=== PATIENT | female | born 1995 | race Two or more races ===

== ENCOUNTER 2024-11-18 14:42 | Inpatient (IN) | payer MEDICAID, SELFPAY ==
[2024-11-18] VITALS (26 sets, daily range): BP systolic 97–201; BP diastolic 56–79; PULSE 56–80; RESP 16–98; TEMP 37.1; O2SAT 97–99; BMI 27.5
--- NOTE | 2024-11-18 15:27 | XR_ITS ---
Examination: Complete OB ultrasound greater than 14 weeks Date and time of exam: November 18, 2024, 1615 hours INDICATIONS: Post dates, labor evaluation today. Findings: Viable intrauterine single fetus with single amniotic sac presentation cephalic spine maternal right. Cardiac motion 136 BPM. Placenta posterior grade 3. Umbilical cord insertion seen. Amniotic fluid index 11.8 cm. Cervix 3.9 cm. Ovaries obscured by the fetus.. Composite estimated gestational age based on BPD, head circumference, abdominal circumference, femur length is 40 weeks 5 days, estimated weight 4352 g. Survey of intracranial anatomy, spinal anatomy, abdominal anatomy, four-chamber heart performed with no abnormalities identified. Impression: Viable intrauterine gestation cephalic presentation. Estimated gestational age 40 weeks 5 days Estimated weight 4352 g..
[2024-11-18 16:29] LABS: Amphetamine/Methamp Scrn,U Negative (Negative); Barbiturate Screen,Urine Negative (Negative); Benzodiazepines Screen,Urine Negative (Negative); Benzoylecgonine Screen, Ur Negative (Negative); Fentanyl Screen,Urine Negative (Negative); Opiate Screen,Urine Negative (Negative); THC Screen,Urine Negative (Negative)
--- NOTE | 2024-11-18 16:43 | PD.LDHP ---
Documentation for date of: 11/18/24 OB Labor/Induct. HPI History of Present Illness Chief complaint: Patient sent over for induction of labor at 41 weeks : 3 Para: 2 Living children: 2 History of Abortions: Spontaneous and Elective: 0 History of Vaginal deliveries: 2 History of sections: No History of : No Date of last menstrual period: 02/06/24 TEJINDER: 11/12/24 Gestational Age (weeks): 40 Gestational Age (days): 6 Gestational age based on last menstrual period: 40 History of present illness: The patient is a 29-year-old -0-0-2 at 40 weeks and 6 days sent over from Dr. Jay's office for an NST and to schedule a possible induction of labor secondary to postdates. Patient had late care at [address] Jay and no set plan for delivery. We do some have records available from Dr. Jay's office. On presentation patient is 4 cm dilated 70% effaced -2 station. Patient was admitted for an induction of labor secondary to postdates with a favorable cervix. Patient started her care in [place] and is dated by 13-week ultrasound that she has on her phone. All other available records from [address] Jay's office are on the chart. She had a history of 2 uncomplicated vaginal deliveries in [place]. She does not get epidurals. She denied any complications. History of Present Dating criteria: LMP confirmed by 1st trimester US (Ultrasound on patient's phone from [place]) Adequate Care: No (US at 13 weeks in [place] ,started care at [address] Jay) Ultrasounds: normal mid trimester US Obstetrical complications: none Medical complications: none Labs Maternal Blood Type: O Pos Labs: Positive: Rubella Titre, Negative: HIV and Group Beta Strep and Unknown: RPR, Hepatitis B, Chlamydia, Gonorrhea, Herpes Type 1, Herpes Type 2 and Covid-19 Past Medical History Surgical History SURGICAL: Negative Section Meds Home Medications and Allergies Home Medications ?Medication ?Instructions ?Recorded ?Confirmed ?Type folic acid 11/18/24 History Allergies Allergy/AdvReac Type Severity Reaction Status Date / Time No Known Drug Allergies Allergy Verified 11/18/24 16:08 OB Exam Physical Exam Vital signs: Temp Pulse Resp BP Pulse Ox 98.7 F 80 16 103/68 98 11/18/24 14:43 11/18/24 14:43 11/18/24 14:43 11/18/24 14:43 11/18/24 15:46 Constitutional Constitutional: no acute distress Routine Cardiovascular Exam Cardiovascular: Present RRR Routine Abdominal Exam Abdominal: Present soft Comments: EFW 7 pounds Detailed Labor and Delivery Exam Dilation (cm): 4 Effacement (%): 70 Cervix position: posterior station: -2 Consistency: medium Presentation: Vertex Membranes: intact Baseline heart rate: 150 monitor accelerations: 15x15 monitor decelerations: None oysterman variability: Moderate (11-25) Contraction frequency (min): Irregular Tachysystole: No OB Results Labs 11/18/24 15:48 OB Assessment & Plan Assessment and Plan (1) Post-dates : Status: Acute Assessment and plan: Draw all missing labs. Check ultrasound for weight and position. Admit patient and induce labor for postdates. Additional Plan Induction method: per pitocin protocol Plan: induction (1) Post-dates Qualifiers: Post-term type: 40-42 weeks gestation Qualified Code(s): O48.0 - Post-term
[2024-11-18 16:45] LABS: Basophils # (Auto) 0.0 Thou/mm3 (0.0-0.2); Basophils % (Auto) 0 % (0-2.5); Eosinophils # (Auto) 0.0 Thou/mm3 (0.0-0.5); Eosinophils % (Auto) 0 % (0-10); Hematocrit 31.0 % (36.0-46.0); Hemoglobin 10.1 g/dL (12.0-16.0); Immature Granulocytes Auto 0.02 Thou/mm3 (0.00-0.00); Lymphocytes # (Auto) 1.6 Thou/mm3 (1.0-4.8); Lymphocytes % (Auto) 25 % (10-50); Mean Corpuscular HGB Conc 32.6 g/dl (31.0-37.0); Mean Corpuscular Hemoglobin 26.9 pg (25.0-35.0); Mean Corpuscular Volume 83 fL (80-100); Monocytes # (Auto) 0.4 Thou/mm3 (0.0-0.8); Monocytes % (Auto) 6 % (0-12); Neutrophils # (Auto) 4.3 Thou/mm3 (1.8-7.7); Neutrophils % (Auto) 68 % (37-80); Nucleated Red Blood Cell # 0.00 Thou/mm3 (0.00-0.00); Nucleated Red Blood Cell % 0 /100 WBC (0); Platelet Count 138 Thou/mm3 (140-440); RDW Standard Deviation 41.1 fL (36.4-46.3); Red Blood Count 3.75 Miln/mm3 (4.00-5.20); White Blood Count 6.3 Thou/mm3 (3.6-11.0)
[2024-11-18] MEDS: RINGERS LACTATED 1000 ML 1,000 ML 100 ML IV ×2 (16:53→19:44)
[2024-11-18 17:23] LABS: Syphilis Nonreactive (Nonreactive)
--- NOTE | 2024-11-18 18:42 | PD.LDPN ---
Documentation for date of: 11/18/24 OB Labor Progress Note Pain Control Pain control: tolerating well Comments: Patient comfortable with rare contractions. She is okay with an amniotomy and Pitocin augmentation. She is Angolan-speaking only and her entire interview is with Cassie hammond labor and delivery nurse at bedside. Pelvic Exam Dilation (cm): 4 Effacement (%): 70 station: -2 Amniotic membrane status: Ruptured Comments: AROM to clear fluid at 1830 IUPC placed Contractions Monitor mode: External Contraction frequency: Irregular Contraction intensity: Mild Status status: Category l Assessment and Plan Assessment: induction ongoing Plan OB labor note: begin Pitocin augmentation Comments: The baby is allegedly 9-1/2 pounds on ultrasound. By EFW baby measures maybe 8 pounds. Patient states that she had two vaginal deliveries in [place] without difficulty. She thinks this baby is a little bigger but she does not think this baby is 9-1/2 pounds. We discussed the biggest concern with a large baby is a potential shoulder dystocia. She was told the only way to avoid a shoulder dystocia would be a . At this time patient would like to attempt labor and declines a primary for a large for gestational age on ultrasound. Patient BMI is only 27 and by Daniel's the baby is approximately 8 pounds. She has an adequate pelvis.
[2024-11-18] MEDS: OXYTOCIN in NS 30 units 30 UNIT/500 ML BAG IV (19:44)
[2024-11-18] MEDS: OXYTOCIN in NS 20 units 20 UNIT/1,000 ML BAG 125 UNIT IV (22:20)
[2024-11-18] MEDS: fentaNYL CIT INJ 50 mCg/ML AMP 2ML 100 MCG IVP (22:20)
[2024-11-18] MEDS: METHYLERGONOVINE INJ 0.2 MG/ML VIAL IM (22:29)
[2024-11-18] MEDS: LIDOCAINE HCL 1% 20 ML VIAL INFL (22:30)
--- NOTE | 2024-11-18 22:48 | PD.LDDELS ---
Data ([facility]) Data Hx Section: No Maternal Blood Type: O Pos Rubella Titre: Positive RPR: Non-reactive Labs: Negative: RPR, HIV and Group Beta Strep and Unknown: Hepatitis B, Chlamydia and Gonorrhea : 3 Para: 2 Term: 2 : 0 Livin Abortions: Spontaneous & Theraputic: 0 Delivery Data ([facility]) Labor Data Initiation of labor: Augmentation Induction/Augmentation Agent: Pitocin and Artificial ROM ROM date: 11/18/24 ROM time: 18:30 Amniotic membrane rupture type: Artificial Amniotic fluid description: Clear Delivery Data EDC: 11/12/24 EDC calculated by:: LMP/early US confirmation (Pt has picture of a 13 week US on her phone from [place]) Date of arrival to unit: 11/18/24 Onset of labor date: 11/18/24 Onset of labor time: 18:30 Complete dilation date: 11/18/24 Complete dilation time: 22:04 delivery date: 11/18/24 delivery time: 22:15 Gestational age (weeks): 40 Gestational age (days): 6 Placenta delivery date: 11/18/24 Placenta delivery time: 22:20 Stage 1 total time: Labor - Stage 1 Duration 3 hours and 34 minutes Delivered by: iRma King ([facility]) Delivery nurse: monique Zhang nurse: demar avery rn Funeral Director at delivery: No Support person(s) at delivery: father of baby Other staff at delivery: RT x 2 Delivery Method Delivery method: Normal Vaginal Delivery Presentation: Vertex position: OA Anesthesia Type Anesthesia Type: Local Delivery Room Medications Delivery room medications given: 100 mcg of fentanyl right after delivery Delivery room medications: Lidocaine (local), Methergine 0.2 mg IM and Pitocin 20 u IV Placenta Placenta delivery description: Spontaneous Cord blood sent to lab: Yes cord blood collection: Cord Blood Type Episiotomy Episiotomy description: None Lacerations #1: Perineal: 1st degree Perineal repair Sutures used for repair: 4.0 Chromic EBL Estimated blood loss (ml): 350 Umbilical Cord cord description: 3 Vessels Additional Procedures The patient progressed to complete with the aid of Pitocin. She was on 8 mu of Pitocin when she progressed to complete at 2204. She did not have an epidural. She then pushed approximately 10 minutes or through about 3-4 contractions delivering a liveborn female at 2215. Findings: liveborn female in the KEITH presentation with no nuchal cord or meconium. Apgars were 8 and 9. Weight was 4055 g or approximately 8 pounds 15 ounces. The baby was vigorous at . No shoulder dystocia was encountered. The baby was placed immediately on mother's chest and the cord was not clamped for 2 to 3 minutes after . The cord was then clamped and cut. The placenta was then complete, spontaneous and grossly normal delivering approximately 5 minutes after baby delivered. The patient was given IV fentanyl after and she had some brisk bleeding noted. She was given IM Methergine and I performed vigorous bimanual uterine massage. The uterus clamped down nicely after these maneuvers. The patient sustained a first-degree perineal laceration repaired in a standard fashion using 4-0 chromic. Complications were none. Condition: both mom and infant were in stable condition in the delivery room. EBL was 350 cc. Complications Complications: None [place] Data ([facility]) [place] [facility] [place]'s name: Katie order: 1 [place]'s gender: Female weight (gms): 4055 g Weight (pounds): 8 lbs and 15.0 ozs 1 minute: 8 5 minutes: 9 10 minutes: 9
[2024-11-18] MEDS: BENZO/LANO/ALOE (Dermoplast) 60 GM CAN 1 SPRAY TOP (23:40)
[2024-11-19] VITALS (8 sets, daily range): BP systolic 98–162; BP diastolic 61–77; PULSE 53–74; RESP 15–18; TEMP 36.6–37.1; O2SAT 96–98; BMI 27.5
[2024-11-19] MEDS: IBUPROFEN TAB 400 MG TABLET 800 MG PO ×3 (00:45→22:22)
[2024-11-19] MEDS: HYDROcodone/APAP 5/325 TABLET 2 TAB PO (03:22)
[2024-11-19 06:22] LABS: Basophils # (Auto) 0.0 Thou/mm3 (0.0-0.2); Basophils % (Auto) 0 % (0-2.5); Eosinophils # (Auto) 0.0 Thou/mm3 (0.0-0.5); Eosinophils % (Auto) 0 % (0-10); Hematocrit 31.6 % (36.0-46.0); Hemoglobin 10.6 g/dL (12.0-16.0); Immature Granulocytes Auto 0.05 Thou/mm3 (0.00-0.00); Lymphocytes # (Auto) 1.4 Thou/mm3 (1.0-4.8); Lymphocytes % (Auto) 11 % (10-50); Mean Corpuscular HGB Conc 33.5 g/dl (31.0-37.0); Mean Corpuscular Hemoglobin 27.7 pg (25.0-35.0); Mean Corpuscular Volume 83 fL (80-100); Monocytes # (Auto) 0.6 Thou/mm3 (0.0-0.8); Monocytes % (Auto) 4 % (0-12); Neutrophils # (Auto) 11.3 Thou/mm3 (1.8-7.7); Neutrophils % (Auto) 85 % (37-80); Nucleated Red Blood Cell # 0.00 Thou/mm3 (0.00-0.00); Nucleated Red Blood Cell % 0 /100 WBC (0); Platelet Count 124 Thou/mm3 (140-440); RDW Standard Deviation 40.5 fL (36.4-46.3); Red Blood Count 3.82 Miln/mm3 (4.00-5.20); White Blood Count 13.3 Thou/mm3 (3.6-11.0)
[2024-11-19] MEDS: DOCUSATE SOD 100 MG CAPSULE PO ×2 (08:43→20:35)
[2024-11-19 08:57] LABS: Chlamydia trachomatis PCR Negative (Not Detect); Neisseria Gonorrhoeae DNA PCR Negative (Not Detect); Trichomonas Negative (Negative)
--- NOTE | 2024-11-19 09:53 | PC.CC ---
Patient is a 29-year-old female who presents to the hospital to deliver her baby girl. Esme STONE received a consult order for spontaneous care. Patient confirmed information on demographics. Esme STONE, and Apolonia MARTE made [id number] contact to complete initial assessment for spontaneous care. At bedside was patient?s and father of baby, Hermes Stanley whom patient provided consent to remain in the room during assessment. ADMISSIONS RECRUITER introduced herself, role in the agency, reason for visit, and discussed limits of confidentiality. Patient appeared alert and oriented to self, time, place, and situation. Patient made good eye contact. Patient was cooperative. Patient?s behavior appeared ordinary. No signs of delusions or hallucinations. Patient reports she found out she was while living in [facility]. Patient reports she found out she was in March 2024 she came to the [facility] in May 2024. Per patient, she received care in March and April in [place]. When she arrived to [place] patient attempted to receive care at [facility] on [address]. Patient was informed they were not taking new patients. Patient attempted to receive care at [facility] but they could not provide her with an appointment until August 30, 2024. Patient reports she was consistent with care after this appointment. Patient reports she has two other children ages 9 and 7 both males. She has all the supplies she needs for her new born and plans to formula and breast feed. She is receiving WIC as a resource. Patient denied history of domestic violence and CWS involvement. ADMISSIONS RECRUITER provided psychoeducation regarding baby blues and Post- Depression, as well as counseling groups at the [facility], [facility]. SW provided community resources: Warm Line and Crisis Line. CHASE, provided update to bedside LIONEL Guerrero.
--- NOTE | 2024-11-19 15:28 | ESPR_ITS ---
Subjective Subjective Interval history: Patient is a 29-year-old G3 now P3 003 day 1 status post vaginal delivery of almost a 9 pound baby at 2215. She only pushed through 3-4 contractions. I was at bedside the entire time. There was no shoulder dystocia and she only had a first-degree perineal laceration. She did not have an epidural. Today she reports no heavy bleeding,no fevers chills, no severe cramping, but she is reporting a significant amount of groin pain bilaterally and states that she cannot walk . Patient is requiring ibuprofen and some [place]. The patient's entire physical and exam is conducted with Cassie one of our official translators and an L&D nurse at bedside. The perineal exam reveals no signs of a vulvar hematoma. She has a little bit more swelling in her right labia majora than her left but no erythema. Patient is pointing at her groin on both sides and stating this is where it hurts. She seems like she has a probable pubic symphyseal diastases. Exam Vital Signs Temp Pulse Resp BP Pulse Ox O2 Del Method 98.0 F 69 15 103/61 97 Room Air 11/19/24 08:45 11/19/24 08:45 11/19/24 08:45 11/19/24 08:45 11/19/24 08:45 11/19/24 08:45 Narrative Exam Patient appears uncomfortable. She is alert and oriented x 3. Her fundus is firm and at her umbilicus. Her perineum has normal swelling with no signs of a vulvar hematoma. Patient is reporting groin pain and difficulty moving her lower legs secondary to groin pain. Objective Labs 11/19/24 05:09 Labs: Laboratory Results - last 24 hr 11/18/24 11/18/24 11/19/24 15:40 15:48 05:09 WBC 6.3 13.3 H D RBC 3.75 L 3.82 L Hgb 10.1 L 10.6 L Hct 31.0 L 31.6 L MCV 83 83 MCH 26.9 27.7 MCHC 32.6 33.5 RDW Std Deviation 41.1 40.5 Plt Count 138 L 124 L Neut % (Auto) 68 85 H Lymph % (Auto) 25 11 [place] % (Auto) 6 4 Eos % (Auto) 0 0 Baso % (Auto) 0 0 Neut # (Auto) 4.3 11.3 H Lymph # (Auto) 1.6 1.4 [place] # (Auto) 0.4 0.6 Eos # (Auto) 0.0 0.0 Baso # (Auto) 0.0 0.0 Immature Gran # (Auto) 0.02 H 0.05 H Absolute Nucleated RBC 0.00 0.00 Immature Gran % 0 0 Nucleated RBC % 0 0 Urine Opiates Screen Negative Urine Fentanyl Screen Negative Ur Barbiturates Screen Negative U Amphetamin/Meth Scrn Negative U Benzodiazepines Scrn Negative U Cocaine Metab Screen Negative U Marijuana (THC) Screen Negative Syphilis Serology Nonreactive Chlam trachomat DNA PCR Negative N.gonorrhoeae DNA (PCR) Negative Trichomonas DNA Probe Negative Blood Type O Positive Antibody Screen NEGATIVE Blood Bank Wristband ID Yes Assessment & Plan Problem List (1) care following vaginal delivery: Problem details: Patient encouraged to ambulate. She is breast-feeding and tolerating a general diet she is voiding. 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 Patient to ambulate. She did not push long, did not have an epidural, and did not have her legs pulled back during delivery. Status: Acute Time Spent With Patient Time: Total time spent is greater than 50% in coordination of care (as documented) at patient's floor/unit and/or counseling patient: Time with patient: 25 - 35 minutes
--- NOTE | 2024-11-19 15:55 | XR_ITS ---
Examination:Right hip AP, lateral, AP pelvis 3 views Technique: Hip AP lateral, AP pelvis, 3 views Exam date and time:November 19, 2024, 1626 hours INDICATIONS: pain. FINDINGS: Diastasis at the symphysis 12 mm No hip or pelvic fracture IMPRESSION: Diastasis of the symphysis, 12 mm.
[2024-11-19] MEDS: HYDROcodone/APAP 5/325 TABLET 1 TAB PO (17:21)
[2024-11-19 19:17] LABS: Hepatitis B Surface Antigen Non Reactive (Non React)
[2024-11-20 04:00] VITALS: BP 122/56; PULSE 59; RESP 17; TEMP 36.5; O2SAT 98
[2024-11-20] MEDS: IBUPROFEN TAB 400 MG TABLET 800 MG PO (06:38)
--- NOTE | 2024-11-20 07:09 | ESPR_ITS ---
RE: KASIA SORENSON : 1995 DATE OF SERVICE: 11/20/2024 day number 2. The patient complains of tenderness in the suprapubic region. X-ray shows a 1.2-cm diastasis of the symphysis. She ambulates with difficulty. She is voiding. She is tolerating a regular diet. She is passing flatus. She denies any excessive vaginal bleeding. She denies any dizziness or lightheadedness. She denies any chest pain, palpitations, shortness of breath or lower extremity pain. PHYSICAL EXAMINATION: Vital Signs: Blood pressure 122/56, heart rate 59, respirations 17, temperature is 97.9, pulse ox is 98% on room air. Lungs: Clear to auscultation bilaterally. Heart: Regular rate and rhythm. Abdomen: Fundus is firm, tender with palpation at the symphysis pubis. Extremities: Nontender. Hemoglobin pre-delivery is 10.1, post-delivery is 10.9. ASSESSMENT: day number 2, status post spontaneous vaginal delivery. Symphysis pubis separation. PLAN: Willard and Motrin for pain control. Physical Therapy Consult may need walker. Follow up with PT upon discharge. Follow up with Primary OB upon discharge within 6 weeks. DT: 06:50:45 TT: 07:08:00 Ref: [id number] - TID: [id number] MTDD
[2024-11-20 07:13] VITALS: BP 117/68; PULSE 60; RESP 16; TEMP 36.8; O2SAT 98
--- NOTE | 2024-11-20 08:04 | PD.LDDS ---
DS: Providers Provider Date of admission: 11/18/24 15:54 Primary care physician: Roma Duffy NP Admitting Provider: Rima King MD ([facility]) Attending Provider on Admission: Tc Metzger MD Consults: 11/18/24 22:46 Referral Routine Comment: Attending Provider on DC: Tc Metzger MD Discharging Provider: Tc Metzger MD DS: Diagnosis Problem List Completed Was Problem List Reviewed/Reconciled?: Yes Summary/Hosp Course Brief History: The patient is a 29-year-old -0-0-2 at 40 weeks and 6 days sent over from Dr. Jay's office for an NST and to schedule a possible induction of labor secondary to postdates. Patient had late care at [address] Jay and no set plan for delivery. We do some have records available from Dr. Jay's office. On presentation patient is 4 cm dilated 70% effaced -2 station. Patient was admitted for an induction of labor secondary to postdates with a favorable cervix. Patient started her care in [place] and is dated by 13-week ultrasound that she has on her phone. All other available records from [address] Jay's office are on the chart. She had a history of 2 uncomplicated vaginal deliveries in [place]. She does not get epidurals. She denied any complications. Peripartum Data Delivery Method: Normal Vaginal Delivery Episiotomy Description: None Time Spent with Patient Time attestation: Total time spent providing and/or coordinating discharge services: Exam Vital Signs Temp Pulse Resp BP Pulse Ox O2 Del Method 98.3 F 60 16 117/68 98 Room Air 11/20/24 07:13 11/20/24 07:13 11/20/24 07:13 11/20/24 07:13 11/20/24 07:13 11/20/24 07:13 Discharge Plan Plan Patient Disposition: HOME (Self Care) Patient condition on transfer: Stable Prescriptions/Referrals Prescriptions/Med Rec: New ibuprofen 800 mg tablet 800 mg PO Q6H PRN (Reason: pain) Qty: 30 1RF hydrocodone-acetaminophen 5-325 mg tablet 1 tab PO Q6H MDD 4 PRN (Reason: pain) Qty: 20 0RF No Action folic acid Referrals: Roma Duffy NP [Primary Care Provider] - Patient/Caregiver Discharge Instructions Discharge Activity: activity as tolerated Other Discharge Activity Instructions:: Follow up office with Primary OB in 6 weeks. Education Materials: After a Vaginal , Breast Care After , Incision Care After Vaginal Print Language: Monegasque Stand Alone Forms: Elizabeth Award Info., Patient Portal Info Letter Discharge Order Discharge Orders: Discharge (Routine); Ordered 11/20/24 Ordered By: Tc Metzger Planned Discharge Date 11/20/24
[2024-11-20] MEDS: DOCUSATE SOD 100 MG CAPSULE PO (08:31)
== END 2024-11-20 14:44 | disposition home or self-care (01) | DRG 560 ==
LOC: S4NX 11-20 06:45 → S4SX 11-20 06:45
PROVIDERS: Admitting Provider Obstetrics & Gynecology; PCP Nurse Practitioner Family; Visit Provider Specialist
DX: O48.0 Post-term pregnancy (principal); O36.63X0 Maternal care for excessive fetal growth, third trimester, not applicable or unspecified; O70.0 First degree perineal laceration during delivery; O71.6 Obstetric damage to pelvic joints and ligaments; Z3A.40 40 weeks gestation of pregnancy; Z37.0 Single live birth
CPT/HCPCS: 36415; 59025; 59409; 73502; 76805; 80307; 85025; 86780; 86850; 86900; 86901; 87340; 87491; 87591; 87661; J2210; J2590; J3010; J3490; J7120; A9270